=== PATIENT | male | born 1995 | race Caucasian/White ===

== ENCOUNTER 2018-08-08 18:04 | Emergency (ER) | payer SELFPAY ==
[2018-08-08 18:04] VITALS: BMI 32.3
--- NOTE | 2018-08-08 19:07 | ED PDOC ---
HPI: Abdomen Time Seen by Provider: 08/08/18 18:36 Chief Complaint (Nursing): Chest Pain Chief Complaint (Provider): abdominal pain History Per: Patient History/Exam Limitations: no limitations Onset/Duration Of Symptoms: Days (x1 week) Current Symptoms Are (Timing): Still Present Location Of Pain/Discomfort: RUQ, LUQ Quality Of Discomfort: "Pain" Associated Symptoms: denies: Fever, Nausea, Vomiting, Diarrhea, Constipation Additional Complaint(s): 22 year old male with no significant past medical history presents to the ED with upper abdominal pain and shortness of breath for a week. Patient describes increasing, band-like pain across upper abdomen associated shortness of breath. Pain is worse when he takes a deep breath. Symptoms are intermittent but have been more persistent today, prompting ED visit. He feels like his upper abdomen is swollen, but denies any nausea, vomiting, diarrhea, constipation, fever, cough, leg swelling or upper chest pain. PMD: none provided Past Medical History Reviewed: Historical Data, Nursing Documentation, Vital Signs Vital Signs: Last Vital Signs Temp 98.2 F 08/08/18 18:12 Pulse 80 08/08/18 18:12 Resp 17 08/08/18 18:12 BP 124/76 08/08/18 18:12 Pulse Ox 100 08/08/18 18:12 - Medical History PMH: Asthma (childhood) Denies: Chronic Kidney Disease - Surgical History Surgical History: Appendectomy - Family History Family History: States: No Known Family Hx - Social History Current smoker - smoking cessation education provided: Yes (2-3 packs a day for x6 years) Alcohol: Social Drugs: Denies - Home Medications Home Medications: Ambulatory Orders Medication Instructions Recorded Azithromycin [Zithromax] 250 mg PO DAILY #4 tab 07/31/17 Benzonatate [Tessalon Perles] 100 mg PO TID #12 sgl 07/31/17 Acetaminophen [Tylenol Extra 1,000 mg PO Q6 PRN #100 tablet 08/08/18 Strength] Famotidine [Pepcid] 40 mg PO DAILY PRN #30 tab 08/08/18 - Allergies Allergies/Adverse Reactions: Allergies Allergy/AdvReac Type Severity Reaction Status Date / Time No Known Allergies Allergy Verified 10/31/15 03:56 Review of Systems ROS Statement: Except As Marked, All Systems Reviewed And Found Negative Constitutional: Positive for: Fever Cardiovascular: Negative for: Chest Pain Respiratory: Positive for: Cough, Shortness of Breath Gastrointestinal: Positive for: Abdominal Pain. Negative for: Nausea, Vomiting, Diarrhea, Constipation Musculoskeletal: Positive for: Other (no leg swelling) Physical Exam - Reviewed Nursing Documentation Reviewed: Yes Vital Signs Reviewed: Yes - Physical Exam Appears: Positive for: Well, Non-toxic, No Acute Distress Head Exam: Positive for: ATRAUMATIC, NORMOCEPHALIC Skin: Positive for: Warm, Dry Eye Exam: Positive for: EOMI, PERRL ENT: Negative for: Pharyngeal Erythema, Tonsillar Exudate Neck: Positive for: Painless ROM, Supple Cardiovascular/Chest: Positive for: Regular Rate, Rhythm, Chest Non Tender. Negative for: Murmur Respiratory: Positive for: Normal Breath Sounds. Negative for: Rales, Wheezing Gastrointestinal/Abdominal: Positive for: Tenderness (bilateral upper quadrant tenderness), Other (Negative Windsor sign and negative McBurneys point tenderness). Negative for: Mass, Guarding, Rebound Back: Positive for: Normal Inspection. Negative for: Decreased ROM Extremity: Positive for: Normal ROM. Negative for: Deformity Lymphatic: Negative for: Adenopathy Neurological/Psych: Positive for: Awake, Alert. Negative for: Motor/Sensory Deficits - Laboratory Results Result Diagrams: 08/08/18 19:23 08/08/18 19:23 - ECG O2 Sat by Pulse Oximetry: 100 (RA) Pulse Ox Interpretation: Normal Medical Decision Making Medical Decision Making: Time: 1840 Impression: upper abdominal pain Differentials include but are not limited to: gastritis, pancreatitis, cholelithiasis Plan: --EKG --CMP --BNP --Lipase --TSH --CBC --PTT --PT/INR --Obstructive Series --US abdomen \\ Name: SHAYY BALTAZAR Exam Date: Aug 08, 2018 9:41:05 PM EDT Modality Type: CT Description: CT - ABDOMEN AND PELVIS WITH CORONAL AND SAGITTAL MPRS Gender: M Laterality: Not applicable : 95 Referring Physician: Samantha Joshua EXAM: CT Abdomen and Pelvis with IV contrast CLINICAL HISTORY: Upper abd pain fluid intraabd TECHNIQUE: Axial computed tomography images of the abdomen and pelvis with intravenous contrast. 849.42 mGy-cm CONTRAST: With; [id number] 95ML COMPARISON: Comparison is made to RUQ abdominal ultrasound performed earlier the same date. FINDINGS: LUNG BASES: The lung bases appear clear. No pleural effusions are seen. LIVER: There is hepatomegaly noted. The liver measured 17.4 cm in the midclavicular line. There is associated hepatic steatosis noted. GALLBLADDER AND BILE DUCTS: The gallbladder appears within normal limits. No radioopaque gallstones are seen. No biliary ductal dilatation is evident. PANCREAS: Unremarkable. SPLEEN: Unremarkable. ADRENAL GLANDS: Unremarkable. KIDNEYS, URETERS, AND BLADDER: The kidneys appear within normal limits. There is no hydronephrosis or hydroureter. No urinary calculi are seen. The urinary bladder appeared normal in size and configuration. STOMACH AND BOWEL: Unremarkable appearance of the stomach and bowel. No evidence of bowel obstruction. No evidence suggesting enteritis or colitis. APPENDIX: No evidence of acute appendicitis on CT examination. PERITONEUM: No free fluid. No free air. A small left inguinal hernia is noted which coontains fat. LYMPH NODES: No lymphadenopathy is evident. REPRODUCTIVE: Unremarkable as visualized. VASCULATURE: No evidence of abdominal aortic aneurysm. BONES: No aggressive appearing osseous lesion. No acute osseous pathology evident. IMPRESSION: 1. Hepatomegaly with diffuse hepatic steatosis. 2. Small left inguinal hernia which contains fat. Electronically signed on Aug 08, 2018 10:53:52 PM EDT by: Sergio Sellers M.D., M.B.A., Certified By [employer] Trained MRI and CT Specialist Labs unremarkable Pt stable. DW pt findings and plan of care. Lifestyle changes and followup clinic/PMD ScribeAttestation: Documented Jeannie Leung, acting as a scribe for Samantha Joshua MD. Provider ScribeAttestation: All medical record entries made by the Scribe were at my direction and personally dictated by me. I have reviewed the chart and agree that the record accurately reflects my personal performance of the history, physical exam, medical decision making, and the department course for this patient. I have also personally directed, reviewed, and agree with the discharge instructions and disposition. Disposition - Clinical Impression Clinical Impression: Abdominal pain - Disposition Referrals: [facility] [Outside] Disposition: Routine/Home Disposition Time: 23:00 Condition: GOOD Additional Instructions: PLEASE FOLLOWUP AT CLINIC IN 1-2 WEEKS FOR REEVALUATION BALANCED DIET AND QUIT SMOKING Prescriptions: Acetaminophen [Tylenol Extra Strength] 1,000 mg PO Q6 PRN #100 tablet PRN Reason: PAIN Famotidine [Pepcid] 40 mg PO DAILY PRN #30 tab PRN Reason: reflux Instructions: Acute Abdomen (Belly Pain), Adult (DC), Nonalcoholic Fatty Liver Disease (DC)
[2018-08-08 19:32] LABS: BASO % 0.7 % (0.0-2.0); EOS # 0.3 K/uL (0.0-0.7); EOS % 6.2 % (0.0-4.0); HEMOGLOBIN 16.1 g/dL (12.0-18.0); LYMPH # 2.6 K/uL (1.0-4.3); LYMPH % 45.7 % (20.0-40.0); MEAN CELL VOLUME 77.5 fl (80.0-94.0); MEAN CORPUSCULAR HEMOGLOBIN 25.6 pg (27.0-31.0); MEAN CORPUSCULAR HGB CONC 33.1 g/dL (33.0-37.0); MEAN PLATELET VOLUME 8.6 fl (7.2-11.7); MONO # 0.7 K/uL (0.0-0.8); MONO % 12.3 % (0.0-10.0); NEUT % 35.1 % (50.0-75.0); NRBC % 0.2 % (0.0-0.0); RBC 6.27 Mil/uL (4.40-5.90); RED CELL DISTRIBUTION WIDTH 15.2 % (11.5-14.5); WHITE BLOOD COUNT 5.6 K/uL (4.8-10.8)
[2018-08-08 19:38] LABS: ALB/GLOB RATIO 1.3 (1.0-2.1); ALBUMIN 4.7 g/dL (3.5-5.0); ALT/SGPT 62 U/L (21-72); AST/SGOT 45 U/L (17-59); BLOOD UREA NITROGEN 15 mg/dl (9-20); GFR NON-AFRICAN AMERICAN > 60; LIPASE 96 U/L (23-300)
[2018-08-08 19:39] LABS: INR 1.1; PROTHROMBIN TIME 12.4 Seconds (9.8-13.1)
[2018-08-08 19:41] LABS: PARTIAL THROMBOPLASTIN TIME 36.2 Seconds (25.6-37.1)
[2018-08-08 19:47] LABS: B-TYPE NATRIURETIC PEPTIDE 24.8 pg/ml (0-450)
[2018-08-08] MEDS ORDERED: Iohexol 300 100 ML IJ ONE (21:30)
[2018-08-08] MEDS ORDERED: Sodium Chloride 0.9% 50 ML IV ONE (21:31)
[2018-08-09 00:05] VITALS: BP 122/69; PULSE 74; RESP 16; TEMP 98.4
--- NOTE | 2018-08-09 08:32 | US ---
Date of service: 08/08/2018 HISTORY: upper abd pain COMPARISON: None. TECHNIQUE: Sonographic evaluation of the right upper quadrant of the abdomen. FINDINGS: LIVER: Measures 17 cm in length. Diffuse increased echogenicity of the liver parenchyma. No mass. No intrahepatic bile duct dilatation. Adjacent to the gallbladder there is a small area of hypoechogenicity noted representing focal fatty sparing. This is not reflective of fluid. GALLBLADDER: No gallstones are seen. No gallbladder wall thickening is noted. No sonographic Bowers's sign was elicited. COMMON BILE DUCT: Measures 2 mm. No stones. No dilatation. PANCREAS: Not visualized due to bowel gas. RIGHT KIDNEY: Measures 11.8 cm in length. Normal echogenicity. No calculus, mass, or hydronephrosis. AORTA: No aneurysmal dilatation. IVC: IVC was limited due to overlying bowel gas. Hepatic veins appear grossly patent. OTHER FINDINGS: None . IMPRESSION: Fatty infiltration of the liver. No ultrasound evidence of acute cholecystitis. Small area of hypoechogenicity adjacent to the gallbladder wall more than likely represents a small area of focal fatty sparing and not fluid. This disagrees with preliminary report provided by the on-call radiologist, and therefore represents a discrepancy.
--- NOTE | 2018-08-09 09:26 | CARD ---
APPROVED REPORT Date of service: 08/08/2018 EKG Measurement Heart [id number] <Conclusion> Normal sinus rhythm T wave abnormality, consider inferior ischemia Abnormal ECG
--- NOTE | 2018-08-09 09:53 | RAD ---
Date of service: 08/08/2018 PROCEDURE: Radiographs of the chest and abdomen (obstructive series) HISTORY: abd pain r/o sbo COMPARISON: No prior. TECHNIQUE: AP radiograph of the chest, with upright and supine radiographs of the abdomen. 3 views obtained. FINDINGS: CHEST: Lungs: Clear. Cardiovascular: Normal size heart. No pulmonary vascular congestion. No aortic atherosclerotic calcification present Pleura: No pleural fluid. No pneumothorax. Other findings: None. ABDOMEN AND PELVIS: Bowel: Unremarkable bowel gas pattern. No evidence of mechanical obstruction. Free air: None. Bones: Unremarkable. Other findings: None. IMPRESSION: Unremarkable radiographs of chest and abdomen. No evidence of mechanical bowel obstruction.
--- NOTE | 2018-08-09 12:23 | CT ---
Date of service: 08/08/2018 PROCEDURE: CT Abdomen and Pelvis with contrast HISTORY: upper abd pain fluid intrabd COMPARISON: Ultrasound same day TECHNIQUE: Contrast dose: 95 milliliters Radiation dose: Total exam DLP = 849.42 mGy-cm. This CT exam was performed using one or more of the following dose reduction techniques: Automated exposure control, adjustment of the mA and/or kV according to patient size, and/or use of iterative reconstruction technique. FINDINGS: LOWER THORAX: Unremarkable. LIVER: Liver is diffusely fatty infiltrated without evidence of focal mass or intrahepatic ductal dilatation. Small amount of focal fatty sparing is seen adjacent to the gallbladder. GALLBLADDER AND BILE DUCTS: Unremarkable. PANCREAS: Unremarkable. No gross lesion or ductal dilatation. SPLEEN: Unremarkable. ADRENALS: Unremarkable. No mass. KIDNEYS AND URETERS: Unremarkable. No hydronephrosis. No solid mass. VASCULATURE: Unremarkable. No aortic aneurysm. No aortic atherosclerotic calcification or mural plaque present. BOWEL: Unremarkable. No obstruction. No gross mural thickening. APPENDIX: No enlarged appendix or inflamed appendix is seen in the right lower quadrant. PERITONEUM: Unremarkable. No free fluid. No free air. LYMPH NODES: Unremarkable. No enlarged lymph nodes. BLADDER: Unremarkable. REPRODUCTIVE: Unremarkable. BONES: No acute fracture. OTHER FINDINGS: Small fat containing left inguinal hernia is noted. Visualized distal esophagus, stomach, and duodenum are unremarkable. IMPRESSION: Fatty infiltration of the liver. No evidence of acute inflammatory process in the abdomen or pelvis. This agrees with preliminary report provided by the on-call radiologist.
[2018-08-10 23:12] VITALS: O2SAT 100
== END 2018-08-09 00:05 | disposition home or self-care (01) ==
LOC: H.ER 18:04
DX: R10.9 Unspecified abdominal pain (principal); F17.210 Nicotine dependence, cigarettes, uncomplicated; J45.909 Unspecified asthma, uncomplicated
CPT/HCPCS: 74022; 74177; 76705; 80053; 83690; 83880; 84443; 85025; 85610; 85730; 93005; 99285; Q9967